=== PATIENT | male | born 1945 | race African-American/Black ===

== ENCOUNTER 2016-12-09 20:53 | Emergency (ER) | payer BC ==
[~2016-12-09 20:53] MED LIST: ASAB PO; AUG875 PO; CIP5 PO; COREG12 PO; COREG6 PO; HALF81 PO; LANTUS SC; LANTUSCART SC; LIPITOR20 PO; LIPITOR40 PO; LISINOPRIL40 MG PO; LOP25 PO; MERREM500 MG IV; NOVOLOG SC; NOVOLOGMIX SC; NOVOPEN IJ; NOVOPEN SC; PHOSLO PO; PLAVIX PO; PRIN20 PO; PRIN5 PO; SEPTRA1 TAB; SEPTRA1 TAB PO; VITAMIN D1000 UNI1 PO; VITAMIN D31000 UNIT PO
[2016-12-09 20:59] LABS: BASOPHILS 0.5 %; BASOPHILS ABSOLUTE 0.03 10/3/uL (0.0-0.16); EOSINOPHILS 1.4 %; EOSINOPHILS ABSOLUTE 0.08 10/3/uL (0.0-0.53); HEMATOCRIT 35.8 % (40.0-51.0); HEMOGLOBIN 12.1 g/dL (13.6-17.8); LYMPHOCYTES ABSOLUTE 1.38 10/3/uL (0.67-4.30); MANUAL DIFF NO %; MEAN CORPUS HGB CONC 33.8 g/dL (32.0-36.0); MEAN CORPUSCULAR HEMOGLOB 31.7 pg (26.0-34.0); MEAN CORPUSCULAR VOLUME 93.7 fL (80-100); MEAN PLATELET VOLUME 11.2 fL (9.2-13.0); MONOCYTES 8.3 %; MONOCYTES ABSOLUTE 0.48 10/3/uL (0.21-1.20); NEUTROPHILS 65.8 %; NEUTROPHILS ABSOLUTE 3.78 10/3/uL (2.02-8.40); PLATELET COUNT 142 10/3/uL (150-400); RBC DISTRIBUTION WIDTH 12.6 % (12.0-16.0); RED CELL COUNT 3.82 10/6/uL (4.7-6.1); WHITE BLOOD CELLS 5.8 10/3/uL (4.5-10.5)
[2016-12-09 21:14] LABS: A/G RATIO 0.8 (0.7-1.9); ALBUMIN 3.2 G/DL (3.5-5.0); ALKALINE PHOSPHATASE 94 U/L (45-117); BUN (BLOOD UREA NITROGEN) 65 MG/DL (6-23); CALCIUM, SERUM 7.1 MG/DL (8.5-10.4); CHLORIDE, SERUM 102 MMOL/L (96-112); CO2 (CARBON DIOXIDE) 28 MMOL/L (24-34); CREATININE 8.77 MG/DL (0.70-1.30); GFR AFRICAN AMERICAN 6 ML/MIN (>=60); GFR NON AFRICAN AMERICAN 6 ML/MIN (>=60); GLOBULIN 4.1 G/DL (2.5-4.1); GLUCOSE, SERUM 256 MG/DL (60-99); POTASSIUM, SERUM 4.1 MMOL/L (3.5-5.3); SGOT(AST) 19 U/L (5-40); SGPT(ALT) 23 U/L (5-65); SODIUM, SERUM 140 MMOL/L (135-148); TOTAL BILIRUBIN 0.5 MG/DL (0-1.2); TOTAL PROTEIN 7.3 G/DL (6.0-8.5)
[2016-12-09] MEDS ORDERED: NEPHRO PO (21:27)
[2016-12-09] MEDS ORDERED: SODBICAR10 PO (21:27)
== END 2016-12-09 23:21 | disposition home or self-care (01) ==
LOC: ER 20:53
PROVIDERS: Specialist
DX: A04.7 Enterocolitis due to Clostridium difficile (principal); I25.2 Old myocardial infarction; I10 Essential (primary) hypertension; Z95.5 Presence of coronary angioplasty implant and graft; Z79.899 Other long term (current) drug therapy; Z79.4 Long term (current) use of insulin; Z79.82 Long term (current) use of aspirin
CPT/HCPCS: 80053; 85025; 96365; 96366; 99284; J3370